=== PATIENT | female | born 1975 | race Caucasian/White ===

== ENCOUNTER 2024-04-04 17:06 | Emergency (ER) | payer OTHER, SELFPAY ==
[2024-04-04 17:08] VITALS: BP 126/84
[2024-04-04 17:36] VITALS: BP 114/81
[2024-04-04 17:54] LABS: % Basophils 0.1 % (0-2); % Immature Granulocytes 0.3 % (0-0.5); % Neutrophils 60.6 % (42.2-75.2); Absolute Eosinophils 0.1 10^3/uL (0-0.7); Absolute Lymphocytes 2.1 10^3/uL (1.2-3.4); Absolute Monocytes 0.7 10^3/uL (0.1-0.6); Absolute Neutrophils 4.5 10^3/uL (1.4-6.5); Hematocrit 35.1 % (37.0-47.0); Hemoglobin 12.8 g/dL (12.0-16.0); Mean Corp Hgb Conc. 36.5 g/dL (33.0-37.0); Mean Corpuscular Hgb 30.8 pg (27.0-31.0); Mean Corpuscular Volume 84.6 fL (81.0-99.0); Mean Platelet Volume 9.3 fL (7.4-10.4); Nucleated Red Blood Cells % 0 %; Platelet Count 262 10^3/uL (130-400); Red Blood Cell Count 4.15 10^6/uL (4.20-5.40); Red Cell Dist. Width 12.5 % (11.5-14.5); White Blood Cell Count 7.3 10^3/uL (4.8-10.8)
[2024-04-04 18:00] VITALS: BP 107/69
[2024-04-04 18:01] LABS: ALT (SGPT) 20 U/L (0-35); AST (SGOT) 24 U/L (14-36); Albumin 4.9 g/dl (3.5-5.0); Alkaline Phosphatase 62 U/L (38-126); Blood Urea Nitrogen 16 mg/dl (7-17); Calcium 9.9 mg/dl (8.4-10.2); Carbon Dioxide 23 mmol/L (22-30); Chloride 107 mmol/L (98-107); Glucose 129 mg/dl (70-99); Potassium 3.8 mmol/L (3.5-5.1); Sodium 140 mmol/L (135-145); Total Bilirubin 0.6 mg/dl (0.2-1.3); Total Protein 8.2 g/dl (6.3-8.2); eGFR > 60.00
[2024-04-04 19:00] VITALS: BP 111/77
[2024-04-04 19:08] LABS: HCG, Serum Qualitative Screen Negative
--- NOTE | 2024-04-04 19:42 | ED.CVA ---
History of Present Illness
General
Chief Complaint: CVA/TIA Symptoms
Source: patient and spouse
Exam Limitations: none
Time Seen by Provider: 04/04/24 17:44
Nursing documentation reviewed up to this point in time: agreed with
Onset of Stroke Symptoms
Onset of symptoms known: Yes
Date of onset of symptoms: 04/01/24
Time pt last seen normal is known: No
Travel History
Have you had any contact with someone who has COVID-19?: No
Do you have any symptoms of coronavirus? Fever > 100 degrees, chills, cough, shortness of breath, sore throat, loss of taste or smell, muscle aches, or headache?: No
History of Present Illness
History of Present Illness:
48-year-old female presenting to the emergency department today with concerns of 5 to 10-minute episode after taking a shower 3 days ago where she had trouble finding words and speaking as well as controlling her spit noticed some potential droop in
the right side of the face. She also had a mild frontal headache for short period of time afterward. Denies any ongoing symptoms. Denies any chest pain shortness of breath or similar symptoms in the past. No chronic medical illnesses.
Review of Systems
Review of Systems
Allergies reviewed?: Yes
All Other Systems: ROS reviewed and negative except as documented in HPI and ROS
Phy Exam
Physical Exam
Physical Exam:
GENERAL: Alert , in no apparent distress
EYE: pupils equal and reactive
NECK: Supple, no significant adenopathy.
ENT: o/p clr, mmm.
CARDIAC: Regular rate and rhythm .
LUNGS: Clear breath sounds bilaterally, no acute respiratory distress, no wheezes/rales/rhonchi
ABDOMEN: Soft, without focal tenderness, no r/g, no cvat
NEUROLOGICAL: Alert and oriented, no focal neuro deficits out of 5 upper and lower extremity strength normal sensation with palpating bilaterally normal finger-nose and [id number] no pronator drift
SKIN: Warm and dry, skin intact.
MUSCULOSKELETAL: No edema, well perfused.
PSYCH: Normal and appropriate interaction.
Course
Orders/Labs/Results
Orders:
Orders
04/04/24 17:36
CBC/With Diff [Complete Blood Count/With Diff] Urgent
CMP [Comprehensive Metabolic Panel] Urgent
HCG, Serum Qualitative Screen Urgent
Comment: ADD ON
04/04/24 18:18
EKG [Electrocardiogram (*1)] Urgent
Reason for Study: TIA/Stroke
EKG- Treatment ONCE
04/04/24 18:23
CT Head & Neck Angio W/wo IV Urgent
Comment:
Reason For Exam: Trouble speaking/facial droop right side(resolved)
04/04/24 18:27
Add On- LAB Urgent
Tests Added?: serum hcg
04/04/24 19:57
Aspirin 325 mg PO NOW STA
Abnormal Lab Results
04/04/24
17:36
RBC 4.15 L 10^6/uL
(4.20-5.40)
Hct 35.1 L %
(37.0-47.0)
Absolute Monos (auto) 0.7 H 10^3/uL
(0.1-0.6)
Glucose 129 H mg/dl
(70-99)
04/04/24 17:36
04/04/24 17:36
Vital Signs
Initial and Last Documented VS:
Initial Vital Signs
Temp Pulse Resp BP Pulse Ox
99.2 F 84 18 126/84 98
04/04/24 17:08 04/04/24 17:08 04/04/24 17:08 04/04/24 17:08 04/04/24 17:08
Last Documented Vital Signs
Temp Pulse Resp BP Pulse Ox
99.2 F 83 18 107/69 96
04/04/24 17:08 04/04/24 18:30 04/04/24 17:08 04/04/24 18:00 04/04/24 18:30
MDM/Problems Addressed
MDM/Problems Addressed:
48-year-old female presenting to the emergency department today with concerns of 5 to 10-minute episode where she had trouble for speech and also some drooling that occurred after taking a shower 3 days ago. Symptoms fully resolved since normal
vital signs upon arrival patient with normal neurologic evaluation here. Patient concerned of potential TIA. CT angiogram was ordered. Neuro was consulted and agreed with the plan. CT angiogram was normal patient with no symptoms throughout ER
stay was started on aspirin advised for close outpatient follow-up with the primary care doctor and neurology and also given information for cardiology follow-up. Return precautions were given.
*Critical Care Note
Total Time (30-74mins, 75-104mins- exclusive of procedures): Not Applicable
ED Attending Note
-
Portions of this chart may have been created with voice recognition software.� Occasional wrong word or��sound alike� substitutions may have occurred due to the inherent limitations of voice recognition software.
Discharge Plan
Departure
Patient Disposition: Home (Routine Discharge)
Date of Disposition: 04/04/24
Time of Disposition: 21:12
Patient with high blood pressure during this ER visit?: No
Condition: Good
Covid-19: Not Applicable
Discharge Problem:
Expressive aphasia
Instructions: Transient Ischemic Attack (DC)
Prescriptions:
No Action
prenat.vits,roger,ttn-mbtr-yocsd [ Vitamin] 1 TAB tablet
1 tab PO
Referrals:
Hubert Mcintosh MD [Active] - Call in 1-3 days for appt
Nic Fontenot CRNP [Family Provider] -
Berlin Almanzar MD [Active] - Call in 1-3 days for appt
Activity Restrictions/Additional Instructions:
You came to the emergency department today with concerns of symptoms that are concerning for TIA. You had a CT angiogram without emergent findings. Please follow closely with neurology cardiology and your primary care doctor and take aspirin
daily. Return to the emergency department for any recurrence or worsening of symptoms.
Interventions
Interventions:
ED- Pulmonary Assessment Last Done: 04/04/24 17:39
ED- Neurological Assessment Last Done: 04/04/24 17:39
ED- Cardiac Assessment Last Done: 04/04/24 17:39
ED Swallowing Screen Last Done: 04/04/24 17:39
Discharge Date and Time
Print Language: ARMENIAN
[2024-04-04] MEDS: ASPIRIN 325 MG PO (20:30)
[2024-04-04 20:34] VITALS: BP 113/74
[2024-04-04 21:00] VITALS: BP 95/81
== END 2024-04-04 21:26 | disposition home or self-care (01) ==
LOC: EMR 17:06
PROVIDERS: Emergency Medicine; EMERGENCY PHYSICIAN Student in an Organized Health Care Education/Training Program; FAMILY PHYSICIAN Chiropractor
DX: R47.01 Aphasia (principal)
CPT/HCPCS: 99284; 70496; 70498; 80053; 84703; 85025; 93005; Q9967

== ENCOUNTER → 2024-05-07 15:15 | Outpatient (REF) | payer OTHER, SELFPAY | LOC: RCS 15:15 | PROVIDERS: ATTENDING PHYSICIAN Internal Medicine Cardiovascular Disease; FAMILY PHYSICIAN Family Medicine | DX: R06.09 Other forms of dyspnea (principal) | CPT/HCPCS: 93017 ==

== ENCOUNTER → 2024-05-26 12:58 | Outpatient (REF) | payer OTHER, SELFPAY ==
--- NOTE | 2024-05-26 13:46 | PTCARENOTE ---
here for agitated saline contrast echo. 1st attempt 22 RAC, images obtained with agitated saline contrast injections per protocol. Tolerated. Presently having full echo study performed.
== END ==
LOC: RCS 12:58
PROVIDERS: ATTENDING PHYSICIAN Internal Medicine Cardiovascular Disease; FAMILY PHYSICIAN Family Medicine
DX: R06.09 Other forms of dyspnea (principal); R29.818 Other symptoms and signs involving the nervous system; R01.1 Cardiac murmur, unspecified
CPT/HCPCS: 93306

== ENCOUNTER → 2024-07-15 13:48 | Outpatient (REF) | payer OTHER, SELFPAY | LOC: PAVMRI 13:48 | PROVIDERS: ATTENDING PHYSICIAN Specialist; FAMILY PHYSICIAN Family Medicine | DX: G45.9 Transient cerebral ischemic attack, unspecified (principal) | CPT/HCPCS: 70551 ==

== ENCOUNTER → 2024-12-11 09:02 | Outpatient (REF) | payer OTHER, SELFPAY | LOC: RCS 09:02 | PROVIDERS: ATTENDING PHYSICIAN Internal Medicine Cardiovascular Disease; FAMILY PHYSICIAN Family Medicine | DX: R94.39 Abnormal result of other cardiovascular function study (principal); R06.09 Other forms of dyspnea | CPT/HCPCS: 93017; 93350 ==